=== PATIENT | male | born 1965 | race Caucasian/White ===

== ENCOUNTER 2017-07-28 21:50 | Emergency (ER) | payer OTHER ==
[~2017-07-28] VITALS: Ht 180.3 cm; Wt 86.0 kg
[2017-07-28 22:28] LABS: BLOOD UREA NITROGEN 12 mg/dL (7-18)
[2017-07-28] MEDS ORDERED: LABETALOL 100 MG TABLET PO ONE (23:30)
[2017-07-29 00:16] VITALS: BP 143/92
== END 2017-07-29 00:19 | disposition home or self-care (01) ==
LOC: ED 22:28
DX: Z02.89 Encounter for other administrative examinations (principal); I10 Essential (primary) hypertension; F15.10 Other stimulant abuse, uncomplicated; Z72.89 Other problems related to lifestyle
CPT/HCPCS: 36415; 71020; 80048; 81003; 82040; 93005; 99285

== ENCOUNTER 2019-10-30 15:46 | Emergency (ER) | payer SELFPAY ==
[~2019-10-30] VITALS: Ht 180.3 cm; Wt 93.8 kg
[2019-10-30 15:54] VITALS: BP 153/92
[2019-10-30] MEDS ORDERED: IBUPROFEN 200 MG TABLET ONE (16:24)
[2019-10-30] MEDS ORDERED: IBUPROFEN 200 MG TABLET PO ONE (16:30)
== END 2019-10-30 17:10 | disposition home or self-care (01) ==
LOC: ED 16:15
DX: L03.311 Cellulitis of abdominal wall (principal); I10 Essential (primary) hypertension; Z72.9 Problem related to lifestyle, unspecified
CPT/HCPCS: 99283

== ENCOUNTER 2021-06-28 00:59 | Emergency (ER) | payer MEDICAID ==
[~2021-06-28] VITALS: Ht 180.3 cm; Wt 94.8 kg
[2021-06-28 01:23] LABS: BASOPHILS % (AUTO) 2 % (0-1); EOSINOPHILS % (AUTO) 0 % (1-7); LYMPHOCYTES % (AUTO) 33 % (22-44); MEAN CORPUSCULAR HEMOGLOBIN 29.1 pg (27.5-34.5); MEAN CORPUSCULAR HGB CONC 33.5 g/dL (33.2-36.2); MEAN PLATELET VOLUME 8.5 fL (7.4-10.4); MONOCYTES % (AUTO) 10 % (2-9); NEUTROPHILS % (AUTO) 55 % (42-75); PLATELET COUNT 195 x10^3/uL (130-400); RED BLOOD COUNT 5.34 x10^6/uL (4.38-5.82); RED CELL DISTRIBUTION WIDTH 13.6 % (9.4-14.8)
[2021-06-28 01:36] LABS: ALANINE AMINOTRANSFERASE 38 U/L (12-78); ALBUMIN 2.7 g/dL (3.4-5.0); ANION GAP 6 mmol/L (5-15); CALCIUM 7.9 mg/dL (8.5-10.1); CHLORIDE 105 mmol/L (98-107)
[2021-06-28 01:38] LABS: ALKALINE PHOSPHATASE 72 U/L (45-117); BILIRUBIN,TOTAL 0.2 mg/dL (0.2-1.0); CREATININE 0.94 mg/dL (0.7-1.3); TOTAL PROTEIN 5.8 g/dL (6.4-8.2)
--- NOTE | 2021-06-28 02:59 | NUR ---
PT CAME INTO THE ED THIS AM DUE TO A PRODUCTIVE COUGH, GREENISH PLEGM, "I FEEL LIKE WHEN I HAD PNEUMONIA", SUBJECTIVE FEVERS,CHILLS X3DAYS. PT PLACED ON SPO2/BP/ECG MONITORING, EKG DONE AND GIVEN TO ERP. CHANGED INTO GOWN, PROVIDED WARM BLANKETS FOR COMFORT. Patient is resting comfortably in bed. Bed in lowest, rails engaged, call light on lap. Vital Signs within normal limits. WCTM.
[2021-06-28] MEDS ORDERED: IBUPROFEN 800 MG TABLET ONE (03:17)
--- NOTE | 2021-06-28 03:21 | NUR ---
PT RESTING IN BED, VSS. NADN. A&Ox4. WCTM. BED IN LOWEST, RAILS ENGAGED. CALL LIGHT ON LAP.
[2021-06-28 03:26] VITALS: BP 126/96
[2021-06-28] MEDS ORDERED: IBUPROFEN 800 MG TABLET PO ONE (03:30)
== END 2021-06-28 03:37 | disposition home or self-care (01) ==
LOC: ED 03:00
DX: U07.1 COVID-19 (principal); R07.89 Other chest pain; I10 Essential (primary) hypertension; F17.200 Nicotine dependence, unspecified, uncomplicated
CPT/HCPCS: 36415; 71045; 80053; 85025; 93005; 99285; U0003; U0005

== ENCOUNTER 2021-06-29 20:37 | Emergency (ER) | payer MEDICAID ==
[~2021-06-29] VITALS: Ht 180.3 cm; Wt 94.6 kg
[2021-06-29 20:46] VITALS: BP 170/96
[2021-06-29 21:40] LABS: BASOPHILS % (AUTO) 1 % (0-1); EOSINOPHILS % (AUTO) 1 % (1-7); LYMPHOCYTES % (AUTO) 29 % (22-44); MEAN CORPUSCULAR HEMOGLOBIN 29.3 pg (27.5-34.5); MEAN CORPUSCULAR HGB CONC 33.4 g/dL (33.2-36.2); MEAN PLATELET VOLUME 8.5 fL (7.4-10.4); MONOCYTES % (AUTO) 11 % (2-9); NEUTROPHILS % (AUTO) 59 % (42-75); PLATELET COUNT 197 x10^3/uL (130-400); RED BLOOD COUNT 5.37 x10^6/uL (4.38-5.82); RED CELL DISTRIBUTION WIDTH 13.9 % (9.4-14.8)
[2021-06-29 21:52] LABS: ALANINE AMINOTRANSFERASE 36 U/L (12-78); ALBUMIN 2.7 g/dL (3.4-5.0); ANION GAP 4 mmol/L (5-15); CALCIUM 7.8 mg/dL (8.5-10.1); CHLORIDE 106 mmol/L (98-107)
[2021-06-29 21:55] LABS: ALKALINE PHOSPHATASE 80 U/L (45-117); BILIRUBIN,TOTAL 0.3 mg/dL (0.2-1.0)
== END 2021-06-30 00:05 | disposition home or self-care (01) ==
LOC: ED 23:59
DX: U07.1 COVID-19 (principal); J12.82 Pneumonia due to coronavirus disease 2019; R06.02 Shortness of breath; F17.210 Nicotine dependence, cigarettes, uncomplicated; I10 Essential (primary) hypertension
CPT/HCPCS: 36415; 71045; 80053; 85025; 93005; 99406

== ENCOUNTER 2021-07-03 08:15 | Emergency (ER) | payer MEDICAID ==
[~2021-07-03] VITALS: Ht 180.3 cm; Wt 92.9 kg
[2021-07-03 08:19] VITALS: BP 143/96
--- NOTE | 2021-07-03 08:24 | NUR ---
PATIENT SWABBED FOR COVID IN TRIAGE BY ERPA. PAGE, WILL BE DISCHARGED FROM TRIAGE.
--- NOTE | 2021-07-03 08:42 | NUR ---
Patient given discharge instructions and they have confirmed that they understand the instructions. Patient educated about need to quarantine until COVID results received. Patient ambulatory with steady gait. NAD, all questions answered appropriately, denies additional needs at this time. No personal belongings left in room after discharge.
== END 2021-07-03 08:43 | disposition home or self-care (01) ==
LOC: ED 08:31
DX: U07.1 COVID-19 (principal); I10 Essential (primary) hypertension
CPT/HCPCS: 99283; U0003; U0005